=== PATIENT | female | born 1990 | race Caucasian/White ===

== ENCOUNTER 2017-09-25 06:38 | Inpatient (IN) | payer MEDICAID ==
[2017-09-25] MEDS ORDERED: Lactated Ringer's 1,000 ML IV ONE ×2 (09:00)
[2017-09-25] MEDS ORDERED: Lactated Ringer's 1,000 ML IV SCH (09:00)
[2017-09-25] MEDS ORDERED: cefOXitin IV 2 gm in Dextrose 2 GM/50 ML BAG IVPB ONE (09:00)
[2017-09-25 09:01] VITALS: BMI 26.9
[2017-09-25] MEDS ORDERED: Sodium Citrate/Citric Acid 15 ml Sol PO ONE (09:04)
[2017-09-25 09:32] LABS: BASO % 0.1 % (0.0-2.0); EOS % 0.7 % (0.0-4.0); HEMOGLOBIN 13.1 g/dL (11.0-16.0); LYMPH # 2.5 K/uL (1.0-4.3); LYMPH % 43.7 % (20.0-40.0); MEAN CELL VOLUME 93.2 fL (81.0-99.0); MEAN CORPUSCULAR HEMOGLOBIN 31.9 pg (27.0-31.0); MEAN CORPUSCULAR HGB CONC 34.2 g/dL (33.0-37.0); MEAN PLATELET VOLUME 8.5 fL (7.2-11.7); MONO # 0.5 K/uL (0.0-0.8); MONO % 8.2 % (0.0-10.0); NEUT # 2.7 K/uL (1.8-7.0); NEUT % 47.3 % (50.0-75.0); NRBC % 0.1 % (0.0-2.0); RBC 4.11 Mil/uL (3.80-5.20); RED CELL DISTRIBUTION WIDTH 13.9 % (11.5-14.5); WHITE BLOOD COUNT 5.7 K/uL (4.8-10.8)
[2017-09-25 09:36] LABS: SQUAMOUS EPITHIAL 71 /hpf (0-5); URINE BACTERIA FEW (<OCC); URINE BILIRUBIN NEGATIVE (NEGATIVE); URINE BLOOD NEGATIVE (NEGATIVE); URINE CLARITY Hazy (Clear); URINE COLOR Yellow (YELLOW); URINE GLUCOSE (UA) NORMAL (Normal); URINE LEUKOCYTE ESTERASE 3+ Leu/uL (Negative); URINE PROTEIN NEGATIVE (NEGATIVE); URINE UROBILINOGEN NORMAL mg/dL (0.2-1.0)
[2017-09-25] MEDS ORDERED: Oxytocin 20 units in LR 2,000 ML IV ONE (10:16)
[2017-09-25] MEDS ORDERED: Sodium Citrate/Citric Acid 15 ml Sol ONE (10:17)
[2017-09-25] MEDS ORDERED: cefOXitin IV 2 gm in Saline 2 GM/50 ML BAG IVPB ONE (10:17)
--- NOTE | 2017-09-25 10:57 | OBADHP ---
Datetime: 09/25/2017 08:36 Admit Comment, IP Provider: [employer] translation device used; [id number] Patient received in bed, LDR#2, and maternal figure present 27 y.o ,, LMP 12/27/16, MARTINA 10/03/17,m EGA 38w 6d, previous C/S for elective repeat C/S. (+) AF M; denies LOF, VB, Ctx. care: [facility]; late registrant at 26+ weeks; dneies issues P Ob: c/S, 07/18/12, presumed LGA, female, 4Kg, [place], no complications p ACTIVITY ASSISTANT: 12 x mnthly x 7 PMH: denies PSH: C/S; age 11, appendectomy NKDA Meds: multivitamins, calcium - once a day Soc Hx: ruby tobacco, illicit drug or EtOH use. Lives with her and his aunt; daughter is in [place]; unemployed. Fam Hx: Mother alive 55 y.o. no med issues. Father age 49 -heart diseases. No known fam h/o cancer P.E.: as above. WD in NAD. Awake, alert, oriented to time, person and place. Pleasant and cooperat keiko Assessment: 27 y.o. P1, 38w 6d, previous C/S for elective repeat C/S. Last ate at midnight. R/B/C discussed. Patient ecpressed an understanding and offered no questions. Consents signed, dated, witnash ssed and placed in chart. Category 1 tracing. Patient is clincally stable. Plan: 1) Admit 2) NPO 3) Admission labs 4) Continuous EFM 5) Abdominal prep and shave 6) Perera 7) Mefoxin, quality control tech to O.R. 8) Notify anesthesia 9) Notify peds 10) call worker to O.R. Pelvic Type - PN: Not Done Extremities - PN: Normal Abdomen - PN: Normal Back - PN: Normal Breast - PN: Normal Lungs - PN: Normal Heart - PN: Normal Thyroid - PN: Not Done Neurologic - PN: Normal HEENT - PN: Normal General - PN: Normal Presentation-Admit: Vertex FHR - Baseline A Provider: 130 Membranes, Provider: Intact Contraction Comments Provider: occasional Comments, ACOG Physical Exam: Abdomen: Gravid. Soft. Non tender. Fundal height 38 cm All other systems reviewed and are negative Gestation - Est Wks by US: 38 weeks 6 days IP Hx Assessment: The History has been Reviewed and is Current Vital Signs Provider: Reviewed IP Chief Complaint: Scheduled Section NICHD Variability Prov Fetus A: Moderate 6-25bpm NICHD Accel Fetus A IP Provider: [id number] FHR Category Provider Fetus A: Category I NICHD Decel Fetus A IP Provider: None Dilatation, Provider: FT Effacement, Provider: 0 Station, Provider: floating Genitourinary Exam: Not Done DTRs - PN: Normal EGA AdmitDate IP: 38.6 IP Adm Impression: Term, intrauterine ; No Active Labor; Intact Membranes IP Admit Plan: Admit to unit; Initiate Section protocol
[2017-09-25] MEDS ORDERED: Morphine 1 mg/ml preservative-free Inj(Duramorph) ONE (11:03)
[2017-09-25] MEDS ORDERED: Oxytocin 10 Units/ml Inj ONE (12:15)
[2017-09-25] MEDS ORDERED: DiphenhydrAMINE 50 mg/ml Inj IVP PRN (13:14)
[2017-09-25] MEDS ORDERED: Oxycodone/Acetaminophen 5/325 mg Tab PO PRN (13:25)
--- NOTE | 2017-09-25 13:31 | OBDS ---
DELIVERY PERSONNEL Delivery Doctor: Baldemar Rodriguez MD Scrub Nurse: Shereen Grimes Diagnostics Sales Developer: Lizzie Arias RN Anesthesiologist: Danilo Resident: Antonoi Marcial MATERNAL INFORMATION Delivery Anesthesia: Spinal Maternal Complications: None Provider Comments: Uncomplicated repeat LTCS with atraumatic delivery of live male infant, ROT posit ion, weight 8lb 4oz, 's 9/9. Hemostasis assured throughout the procedure. Patient tolerated proc edure well. Returned to R#2 in stable condition. Infant had been transferred to [facility] i n stable condition. LABOR SUMMARY EDC: 10/03/2017 00:00 No. Babies in Womb: 1 Attempted: No Labor Anesthesia: None LABOR INFORMATION Oxytocin: N/A Steroids Given: None MEMBRANES Membranes Rupture Method: Artificial Rupture of Membranes: 09/25/2017 12:10 Length of Rupture (hrs): 0.00 Amniotic Fluid Color: Clear Amniotic Fluid Amount: Moderate Amniotic Fluid Odor: Normal STAGES OF LABOR Stage 3 hrs: 0 Stage 3 min: 1 CSECTION DELIVERY Primary Indication: Repeat Elective Secondary Indication: N/A CSection Urgency: Elective CSection Incidence: Repeat Labor: N/A Elective: Elective CSection Incision: Lower Uterine Transverse Sterilization Procedure: Juan BABY A INFORMATION Delivery Date/Time: 09/25/2017 12:10 Method of Delivery: Born in Route : No : N/A Forceps: N/A Shoulder Dystocia : No SHOULDER DYSTOCIA BABY A Infant Delivery Date/Time: 09/25/2017 12:10 PRESENTATION/POSITION BABY A Presentation: Cephalic Cephalic Presentation: Vertex Vertex Position: Left Occipital Anterior Breech Presentation: N/A PLACENTA INFORMATION BABY A Placenta Delivery Time : 09/25/2017 12:11 Placenta Method of Delivery: Manual Removal Placenta Status: Delivered SCORES BABY A Heart Rate 1 min: >100 bpm Resp Effort 1 min: Good Cry Reflex Irritability 1 min: Cough or Sneeze or Pulls Away Muscle Tone 1 min: Active Motion Color 1 min: Body [place], Extremities Blue Resuscitation Effort 1 min: N/A SCORE 1 MIN: 9 Heart Rate 5 min: >100 bpm Resp Effort 5 min: Good Cry Reflex Irritability 5 min: Cough or Sneeze or Pulls Away Muscle Tone 5 min: Active Motion Color 5 min: Body [place], Extremities Blue Resuscitation Effort 5 min: N/A SCORE 5 MIN: 9 INFORMATION BABY A Gestational Age at Delivery: 38.6 Gestational Status: Term Outcome : Liveborn Infant Condition : Stable Infant Sex: Male IDENTIFICATION/MEDS BABY A ID Band Number: [id number] ID Band Location: Left Leg; Taped to Bed Sensor Applied: Yes Sensor Number: [id number] Sensor Location : Cord Clamp Vitamin K Given : Not Given Erythromycin Given: Not Given WEIGHT/LENGTH BABY A Birthweight (gms): 3730 Infant Weight (lb): 8 Infant Weight (oz): 4 Length Inches: 20.25 Infant Length cms: 51.4 CORD INFORMATION BABY A No. Cord Vessels: 3 Nuchal Cord : N/A Cord Blood Taken: Yes Suction: Mouth; Nose ASSESSMENT BABY A Infant Complications: None Physical Findings at Delivery: Within Normal Limits Physical Findings Other: voided/ As per Dr. Yao Calixto to nursery immediately ( to nursery at 12:20) Respirations: Grunting; Intercostal Retractions; Tachypnea Marketing And Communications Officer/ALS Called : No Infant Care By: Kailee Stroud Transferred To: Nursery
--- NOTE | 2017-09-25 13:37 | PCM.SURG1 ---
Surgeon's Initial Post Op Note - Surgeon's Notes Surgeon: Lashawn Rodriguez MD Rubber Production Machine Operator: Barrera Merlos MD. Mathieu Gutierrez MS-3 Type of Anesthesia: Spinal Anesthesia Administered By: Roni Carrasco DO Pre-Operative Diagnosis: 38 weeks 6 days gestation; previous section. Operative Findings: Live male infant, ROT position, 's 9/9. Normal uterus, normal fallopian tubes and ovaries, bilaterally Post-Operative Diagnosis: Same; S/P repeat LTCS Operation Performed: Repeat LTCS Specimen/Specimens Removed: None Estimated Blood Loss: EBL {In ML}: 800 (U.O. 100 mL; IVFs 1,500 mL LR. Pitocin 40 units; methergine 0.2 mg IM) Blood Products Given: N/A Drains Used: No Drains Post-Op Condition: Good Date of Surgery/Procedure: 09/25/17 Time of Surgery/Procedure: 13:40
[2017-09-25] MEDS: Simethicone 80 mg Chewtab PO SCH (18:54)
--- NOTE | 2017-09-26 01:10 | OP ---
Copied To: Lashawn Rodriguez MD Attending MD: Lashawn Rodriguez MD PROCEDURE DATE: 09/25/2017 SURGEON: Lashawn Rodriguez MD NIP WRAPPER: Barrera Merlos MD [employer] VICE PRESIDENT: Mathieu Gutierrez MS-3 ANESTHESIOLOGIST: Yevgeniy Carrasco DO ANESTHESIA TYPE: Spinal. PREOPERATIVE DIAGNOSES: A 38-week 6-day gestation, previous Caesarean section. POSTOPERATIVE DIAGNOSES: A 38-week 6-day gestation, previous Caesarean section. OPERATIVE FINDINGS: Live male from the right occipital transverse position, weight 8 pounds 4 ounces. Apgars were 9 and 9 at one minute and five minutes respectively. Normal uterus and normal fallopian tubes and ovaries bilaterally. OPERATION PERFORMED: Repeat transverse lower uterine segment Caesarean section. COMPLICATIONS: None. SPECIMENS: None. ESTIMATED BLOOD LOSS: 800 mL. URINE OUTPUT: 100 mL of clear urine. INTRAVENOUS FLUIDS: 1500 mL of lactated Ringer's. The patient also received Pitocin 40 units in total and received Methergine 0.2 mg IM x1 dose. DESCRIPTION OF PROCEDURE: The patient was taken to the operating room after having obtained informed consent for the anticipated procedure. This included a discussion of potential risks and complications including, but not limited to, infection requiring antibiotics, hemorrhage requiring blood transfusion, repair of any damage to internal organs, possible Caesarean hysterectomy. The patient expressed an understanding. No questions were offered. Consents were signed, dated, witnessed and placed in the chart. In LDR #2, the patient received Mefoxin 2 g by IV piggyback; she was escorted to the operating room. In the operating room, she was placed on the table in a sitting position where spinal anesthesia was administered without incident. She was immediately repositioned into a supine position with a left lateral tilt. A Perera catheter was inserted under sterile conditions. The patient's abdomen was prepped. She was subsequently draped in the usual sterile fashion. After assuring an adequate level of anesthesia, using a scalpel, a Pfannenstiel incision was made on the skin through the previous scar. The incision was carried down through the subcutaneous tissue using the Bovie electrocautery. The fascia was identified. It was nicked in the midline, and the incision was extended bilaterally also using the Bovie electrocautery. The rectus muscles were dissected off the overlying fascia. The rectus muscle was then in the midline by sharp dissection. The parietal peritoneum was pierced by the scalpel, and the abdomen was entered by sharp dissection. The vesicouterine reflection was identified, and the bladder flap was created. A transverse incision was then made on the lower uterine segment. Amniotomy was performed and a copious amount of clear amniotic fluid was retrieved. Atraumatic delivery of the infant described as above then ensued. Once on the operative field, the 's mouth and nose were bulb suctioned as umbilical cord was doubly clamped and cut. The infant was handed off the operative field to the die grinder in attendance. The placenta was extracted by manual extraction; it was grossly intact with three vessels present in the cord. The uterus was exteriorized for closure. This was done in two layers using 0 Vicryl. The first layer was in a running interlocking fashion. The second layer was in a horizontal imbricating fashion. Attention was then directed to the posterior aspect of the uterus with the findings as above. Copious irrigation was performed. After assuring adequate hemostasis along the uterine incision line, the bladder flap was reapproximated using 2-0 chromic in a running fashion. A layer of Surgicel was placed along the incision. The uterus was returned to the abdominal cavity. The paracolic gutters were cleared of all debris. The parietal peritoneum was then reapproximated using 2-0 chromic in a running fashion. The muscle was reapproximated using a 2-0 chromic in a running fashion. The fascia was reapproximated using 1-0 Vicryl in a running fashion in one suture. The subcutaneous tissue was reapproximated using 0 plain gut in a running fashion, and the skin was reapproximated using surgical clips. The patient was repositioned in a frog-leg manner. Bimanual exploration was performed. The uterus was expressed of all additional blood clots and debris. The uterus was contracted and firm. It was noted to be approximately three fingerbreadths below the umbilicus. The patient was then transferred back to [facility] in stable condition. The had been transferred to the [facility] also in stable condition. Dr. Barrera Merlos was present for the entire procedure, from beginning to end. His expertise in assisting was needed for the followin) assuring adequate visualization of the operative field at all times 2) assuring the safe and atraumatic delivery of the infant 3) assuring hemostasis throughout the procedure Lashawn Rodriguez MD BRYAN
[2017-09-26] MEDS: Oxycodone/Acetaminophen 5/325 mg Tab PO PRN ×4 (04:20→21:04)
--- NOTE | 2017-09-26 07:27 | OBPPN ---
Datetime: 09/26/2017 07:19 PP Pain Prov: Within normal limits PP Nausea Prov: Denies PP Flatus Prov: No PP Heart Prov: Normal PP Lungs Prov: Normal PP Extremities Prov: Normal PP C/S Incision Prov: Normal PP Impression Prov: Normal progression PP Plan Prov: Continue present management PP Progress Note Prov: pt was seen at bed side, pain under control,no n.v, waiting to void, flatus_ pod#1 s/p c/s cbc liquid deit cont pain ma obnt post op care encourage ambulation Vital Signs Provider PP: Reviewed; Within Normal Limits
[2017-09-26 08:31] LABS: HEMOGLOBIN 13.3 g/dL (11.0-16.0); MEAN CORPUSCULAR HEMOGLOBIN 32.2 pg (27.0-31.0); MEAN CORPUSCULAR HGB CONC 34.2 g/dL (33.0-37.0); MEAN PLATELET VOLUME 8.2 fL (7.2-11.7); RBC 4.13 Mil/uL (3.80-5.20); RED CELL DISTRIBUTION WIDTH 13.6 % (11.5-14.5); WHITE BLOOD COUNT 7.6 K/uL (4.8-10.8)
[2017-09-26] MEDS: Simethicone 80 mg Chewtab PO SCH ×5 (09:32→22:12)
[2017-09-27] MEDS: Simethicone 80 mg Chewtab PO SCH ×4 (11:08→22:17)
[2017-09-27] MEDS ORDERED: Magnesium Hydroxide Susp 30 ml UD PO ONE (11:09)
[2017-09-27] MEDS: Prenatal Multivit/Folic Acid/Iron Tab PO SCH (11:10)
[2017-09-27] MEDS: POLYETHYLENE GLYCOL 3350 17 GM/Dose PACKET PO SCH ×2 (13:45→18:22)
[2017-09-27] MEDS ORDERED: Lactated Ringer's 1,000 ML IV SCH (13:45)
--- NOTE | 2017-09-27 16:53 | OBPPN ---
Datetime: 09/27/2017 16:40 PP Pain Prov: Within normal limits PP Nausea Prov: Denies PP Flatus Prov: No PP BM Prov: No PP Breasts Prov: Normal PP Heart Prov: Normal PP Lungs Prov: Normal PP Abdomen/Uterus Prov: Normal PP Lochia Prov: Normal PP Vulva/Perineum Prov: Not Done PP CVA Tenderness Prov: Normal PP Extremities Prov: Normal PP C/S Incision Prov: Normal PP Progress Prov: Not Applicable PP Comments Phys Exam Prov: Abdomen: Moderatley distended. (+) normoactive BS. Fundus firm, mobile, mildly tender, 1 FB below umbilicus. Incision with darnell - clean, dry and intact. Minimal lochia ru bra Extremities: trace pedal edema, bilaterally. No calf tenderness All other systems reviewed and are negative PP Impression Prov: Normal progression PP Plan Prov: Continue present management PP Progress Note Prov: Patient seen earlier in the day: received in room 451, crying from pain in ep igastric/ upper abdominal area. Denies nausea or vomiting; not much appetite. Denies flatus or BM. D enies headaches, dizziness or lightheadedness. Pumping her breasts. Incisional pain is minimal, veronica red to upper abdomnal pain. P.E.: as above. WD, crying in pain. Awake, alert, oriented to tome, person and place. Pleasant an d cooperative - POD#1 H/H13.3/38.8. Rh (+) Assessment: POD#2, , S/P repeat C/S. was transferred to [facility] for GI a nd respiratory evaluation. Afebrile, vital signs stable. Very slowly returning GI function. Patient c ounseled to continue to ambulate, reduce taking percocet for pain. Also D/W pt resuming NPO status, e xcept for meds, and IVFs. Patient expressed an understanding and agrees Addendum: 1625 hours: Patient has since passed flatus and had a BM. She feels much better - seen at the bedside, looks better, smiling. Patient is clinically stable. Plan: 1) Continue regular diet (advised to eat small and if necessary, more freqeunt) 2) Continue post op care 3) Anticipate discharge home 09/28 Vital Signs Provider PP: Reviewed; Within Normal Limits
[2017-09-28 00:12] VITALS: RESP 20
[2017-09-28 08:16] VITALS: BP 119/78; PULSE 90; O2SAT 98
[2017-09-28] MEDS: POLYETHYLENE GLYCOL 3350 17 GM/Dose PACKET PO SCH (10:11)
[2017-09-28] MEDS: Prenatal Multivit/Folic Acid/Iron Tab PO SCH (10:12)
[2017-09-28] MEDS: Simethicone 80 mg Chewtab PO SCH (10:12)
[2017-09-28] MEDS: Oxycodone/Acetaminophen 5/325 mg Tab PO PRN (10:22)
--- NOTE | 2017-09-28 16:03 | OBDCSUM ---
Datetime: 09/28/2017 09:00 Discharged to, Provider: Home Follow up at, Provider: [facility] Disch Instr Activity: Normal activity Disch Instr Diet: Regular Discharge Diet restrict Prov: none Discharge Instructions, Provider: Routine instructions given Discharge Diagnosis, Provider: Term Delivered Discharge Time: 09/28/2017 10:00 Follow up in weeks, Provider: 10/02/2017 Disch Referrals: None Contraception discussed, Prov: Yes Disch Activity Restrictions: No exercising; No lifting; No driving; Minimize walking; Minimize stair -climbing; No sexual activity; Nothing in vagina - [place], tampons, douche Discharge Comment, Provider: POD # 3 A/P Repeat C/S without complications No complaints Stable and Satisfactory condition and reciivery D/C home with instructions and Rx for Motrin and Percocet Advised to increase po water and Fiber in diet Continue PNV daily for anoter 3-4 months F/Up in clinic in 7-10 days or sooner if needed Contraception after Delivery: Not Planning to Use
[2017-09-28 20:30] VITALS: TEMP 98
== END 2017-09-28 15:35 | disposition home or self-care (01) | DRG 373 ==
LOC: C.4D 08:17 → C.4M 18:00
PROVIDERS: ADMIT Obstetrics & Gynecology; ATTEND Obstetrics & Gynecology
DX: O34.219 Maternal care for unspecified type scar from previous cesarean delivery (principal); Z3A.38 38 weeks gestation of pregnancy; Z37.0 Single live birth

== ENCOUNTER 2017-10-06 10:42 | Emergency (ER) | payer MEDICAID ==
[2017-10-06 10:43] VITALS: BMI 26.9
[2017-10-06 12:47] LABS: SQUAMOUS EPITHIAL 12 /hpf (0-5); URINE BACTERIA OCC (<OCC); URINE BILIRUBIN NEGATIVE (NEGATIVE); URINE BLOOD 1+ (NEGATIVE); URINE CLARITY Hazy (Clear); URINE COLOR Yellow (YELLOW); URINE GLUCOSE (UA) NORMAL (Normal); URINE LEUKOCYTE ESTERASE 3+ Leu/uL (Negative); URINE PROTEIN NEGATIVE (NEGATIVE); URINE UROBILINOGEN NORMAL mg/dL (0.2-1.0)
[2017-10-06 12:59] LABS: BASO # 0.1 K/uL (0.0-0.2); BASO % 1.1 % (0.0-2.0); EOS # 0.1 K/uL (0.0-0.7); EOS % 2.8 % (0.0-4.0); HEMOGLOBIN 14.8 g/dL (11.0-16.0); LYMPH # 2.5 K/uL (1.0-4.3); LYMPH % 52.9 % (20.0-40.0); MEAN CELL VOLUME 92.2 fL (81.0-99.0); MEAN CORPUSCULAR HEMOGLOBIN 31.9 pg (27.0-31.0); MEAN CORPUSCULAR HGB CONC 34.6 g/dL (33.0-37.0); MEAN PLATELET VOLUME 6.8 fL (7.2-11.7); MONO # 0.2 K/uL (0.0-0.8); MONO % 4.9 % (0.0-10.0); NEUT # 1.8 K/uL (1.8-7.0); NEUT % 38.3 % (50.0-75.0); NRBC % 0.2 % (0.0-2.0); RBC 4.64 Mil/uL (3.80-5.20); RED CELL DISTRIBUTION WIDTH 13.2 % (11.5-14.5); WHITE BLOOD COUNT 4.8 K/uL (4.8-10.8)
[2017-10-06 13:31] LABS: BLOOD UREA NITROGEN 14 mg/dL (7-17); CALCIUM 9.5 mg/dl (8.6-10.4); GFR AFRICAN-AMERICAN > 60; GFR NON-AFRICAN AMERICAN > 60
[2017-10-06 14:46] VITALS: BP 109/76; PULSE 73; RESP 18; TEMP 98.4; O2SAT 99
--- NOTE | 2017-10-06 14:46 | C.PDOC ---
History Of Present Illness 27 year old female present to ED complaining of left sided abdominal pain for the past two days. Patient reports vaginal itching with green discharge. Patient states she had a on September 25, 2017. Denies vaginal bleeding , having sex. Time Seen by Provider: 10/06/17 12:04 Chief Complaint (Nursing): Female Genitourinary History Per: Patient History/Exam Limitations: no limitations Onset/Duration Of Symptoms: Days Current Symptoms Are (Timing): Still Present Location Of Pain/Discomfort: LLQ Recent travel outside of the [place] States: No Past Medical History Reviewed: Historical Data, Nursing Documentation, Vital Signs Vital Signs: Last Vital Signs Temp 98.4 F 10/06/17 14:44 Pulse 73 10/06/17 14:44 Resp 18 10/06/17 14:44 BP 109/76 10/06/17 14:44 Pulse Ox 99 10/06/17 18:27 - Medical History PMH: Denies: Depression, Diabetes, HTN Surgical History: No Surg Hx Family History: States: No Known Family Hx - Social History Hx Alcohol Use: No Hx Substance Use: No Review Of Systems Except As Marked, All Systems Reviewed And Found Negative. Gastrointestinal: Positive for: Abdominal Pain (left sided) Genitourinary: Positive for: Vaginal Discharge (green discharge), Other ( vaginal itching). Negative for: Vaginal Bleeding Physical Exam - Physical Exam Appears: Non-toxic, No Acute Distress Skin: Warm, Dry Head: Atraumatic, Normacephalic Eye(s): bilateral: Normal Inspection, PERRL, EOMI Oral Mucosa: Moist Neck: Supple Chest: Symmetrical Cardiovascular: Rhythm Regular Respiratory: Normal Breath Sounds Gastrointestinal/Abdominal: Soft, Tenderness (left lower quadrant tenderness) Pelvic: Vaginal Discharge (light green), No Cervical Motion Tenderness, No Cervix Open Extremity: Normal ROM Neurological/Psych: Oriented x3 Gait: Steady ED Course And Treatment - Laboratory Results Result Diagrams: 10/06/17 12:55 10/06/17 12:55 O2 Sat by Pulse Oximetry: 99 (RA) Pulse Ox Interpretation: Normal Medical Decision Making Medical Decision Making: Impression: Trichomonas Plan: * Labs * Urinalysis Patient seen and examined. Pelvic exam done, patient with light green vaginal discharge. Sample collected for GC/chlamydia, explained to patient that results take several days. Patient states she is not concerned about STDs, does not want prophylaxis. UA shows UTI and presence of trichomonas. Rx written for Keflex and for Flagyl. Advised patient to stop until 24 hours after she finishes Flagyl. Return to the ED for any new or worsening symptoms. Disposition - Disposition Disposition: HOME/ ROUTINE Disposition Time: 14:44 Condition: STABLE Additional Instructions: JANICE RILEY, thank you for letting us take care of you today. Your provider was Amy Davidson MD and you were treated for ABD PAIN. The emergency medical care you received today was directed at your acute symptoms. If you were prescribed any medication, please fill it and take as directed. It may take several days for your symptoms to resolve. Return to the Emergency Department if your symptoms worsen, do not improve, or if you have any other problems. Please contact your doctor or call one of the physicians/clinics you have been referred to that are listed on the Patient Visit Information form that is included in your discharge packet. Bring any paperwork you were given at discharge with you along with any medications you are taking to your follow up visit. Our treatment cannot replace ongoing medical care by a primary care provider outside of the emergency department. Thank you for allowing the [facility] team to be part of your care today. If you had an X-Ray or CT scan: A Radiologist will review the ED reading if any change in treatment is needed we will contact you. If you had a blood, urine, or wound culture: It will take several days for the results, if any change in treatment is needed we will contact you. If you had an STI test: It will take 48 hours for the results. Please call after 1 week if you have not heard back. Do NOT breastfeed until 24 hours after the last dose of Flagyl. Prescriptions: Cephalexin [cephalexin] 500 mg PO BID #14 cap Metronidazole [Flagyl] 500 mg PO BID #14 tablet Instructions: Urinary Tract Infection, Adult (DC), Trichomoniasis (DC) Forms: [facility] (Czech) - Clinical Impression Clinical Impression: UTI (urinary tract infection), Trichomoniasis - Scribe Statement The provider has reviewed the documentation as recorded by the Scribe Prakash Rock Provider Attestation: JANICE RILEY, thank you for letting us take care of you today. Your provider was Amy Davidson MD and you were treated for ABD PAIN. The emergency medical care you received today was directed at your acute symptoms. If you were prescribed any medication, please fill it and take as directed. It may take several days for your symptoms to resolve. Return to the Emergency Department if your symptoms worsen, do not improve, or if you have any other problems. Please contact your doctor or call one of the physicians/clinics you have been referred to that are listed on the Patient Visit Information form that is included in your discharge packet. Bring any paperwork you were given at discharge with you along with any medications you are taking to your follow up visit. Our treatment cannot replace ongoing medical care by a primary care provider outside of the emergency department. Thank you for allowing the [facility] team to be part of your care today. If you had an X-Ray or CT scan: A Radiologist will review the ED reading if any change in treatment is needed we will contact you. If you had a blood, urine, or wound culture: It will take several days for the results, if any change in treatment is needed we will contact you. If you had an STI test: It will take 48 hours for the results. Please call after 1 week if you have not heard back.
== END 2017-10-06 14:44 | disposition home or self-care (01) ==
LOC: C.ER 10:42
DX: N39.0 Urinary tract infection, site not specified (principal); A59.9 Trichomoniasis, unspecified